=== PATIENT | male | born 1955 | race Caucasian/White ===

== ENCOUNTER → 2024-03-23 | Outpatient (CLI) | payer MEDICARE, MEDICAID, SELFPAY ==
[2024-03-23 12:01] LABS: Basophils % (Auto) 0 % (0-2.5); Eosinophils # (Auto) 0.1 Thou/mm3 (0.0-0.5); Eosinophils % (Auto) 1 % (0-10); Hematocrit 50.2 % (41.0-53.0); Hemoglobin 16.5 g/dL (13.5-16.0); Immature Granulocytes % (Auto) 0 % (0-0); Immature Granulocytes Auto 0.02 Thou/mm3 (0.00-0.00); Lymphocytes # (Auto) 1.6 Thou/mm3 (1.0-4.8); Lymphocytes % (Auto) 19 % (10-50); Mean Corpuscular HGB Conc 32.9 g/dl (31.0-37.0); Mean Corpuscular Hemoglobin 30.8 pg (25.0-35.0); Mean Corpuscular Volume 94 fL (80-100); Monocytes # (Auto) 1.8 Thou/mm3 (0.0-0.8); Monocytes % (Auto) 21 % (0-12); Neutrophils # (Auto) 5.1 Thou/mm3 (1.8-7.7); Neutrophils % (Auto) 59 % (37-80); Nucleated Red Blood Cell % 0 /100 WBC (0); Platelet Count 218 Thou/mm3 (140-440); RDW Standard Deviation 45.6 fL (35.1-43.9); Red Blood Count 5.35 Miln/mm3 (4.50-5.90); White Blood Count 8.6 Thou/mm3 (3.8-10.6)
[2024-03-23 12:08] LABS: Partial Thromboplastin Time 26.4 Seconds (22.0-36.0); Prothrombin Time 11.3 Seconds (9.0-12.2)
[2024-03-23 12:19] LABS: Anion Gap 8 (7-16); BUN/Creatinine Ratio 8 Ratio (12-20); Blood Urea Nitrogen 12 mg/dL (9-23); Calcium 10.1 mg/dL (8.3-10.6); Carbon Dioxide 25.8 mMol/L (20.0-31.0); Chloride 104 mMol/L (98-107); Creatinine (Component) 1.6 mg/dL (0.6-1.3); Glucose 87 mg/dL (74-106); Osmolality,Calculated 274 (275-295); Sodium 138 mMol/L (136-145); eGFR 46 See Note
== END | disposition home or self-care (01) ==
PROVIDERS: PCP Family Medicine; Referring Provider Internal Medicine; Visit Provider Internal Medicine
DX: I25.10 Atherosclerotic heart disease of native coronary artery without angina pectoris (principal); I48.91 Unspecified atrial fibrillation
CPT/HCPCS: 36415; 80048; 85025; 85610; 85730

== ENCOUNTER 2024-03-28 07:16 | Observation (INO) | payer MEDICARE, MEDICAID, SELFPAY ==
[2024-03-28] VITALS (12 sets, daily range): BP systolic 103–154; BP diastolic 71–99; PULSE 77–113; RESP 16–24; TEMP 36.1–36.9; O2SAT 95–98; BMI 29.8
--- NOTE | 2024-03-28 07:27 | XR_ITS ---
Examination: AP chest single view Technique one AP portable semiupright chest single view Exam date and time: March 28, 2024 0735 hrs. Comparison March 22, 2023 Indications: Chest pain beginning this morning Findings: Normal heart size Lungs are clear The osseous structures are intact Impression: No active disease
--- NOTE | 2024-03-28 07:27 | EKG_ITS ---
[facility] Test Date: 2024-03-28 Pat Name: MACIEJ GOTTLIEB Department: Room: - Gender: Male Garnisher: : [id number] Requested By: Kathleen Alvarado Order Number: [id number] Reading MD: Kathleen Alvarado Measurements Intervals [place] Rate: 96 P: 11 MT: 121 QRS: 47 QRSD: 109 T: 19 QT: 335 QTc: 424 Interpretive Statements SINUS RHYTHM Compared to ECG 07/27/2023 10:42:22 Intraventricular conduction delay no longer present /store/S0/[id number]/ecg/[id number].pdf
--- NOTE | 2024-03-28 08:01 | PD.EDCHEST ---
ED Chest Pain RME/HPI General Chief Complaint: Chest Pain Stated Complaint: CHEST PAIN Time Seen by Provider: 03/28/24 07:35 Arrival date/time: 03/28/24 07:16 RME / HPI RME / HPI narrative: DR. KOO MAIN ED EVALUATION: 68 year old male with past medical history significant for hypertension, hyperlipidemia, and smoking presents to the Emergency Department [facility] with complaint of left-sided chest pain. Pain is described as aching and rated moderate in severity. Related Data Home Medications ?Medication ?Instructions ?Recorded ?Confirmed trazodone 50 mg tablet 100 mg PO HS 11/06/18 01/05/21 omeprazole 20 mg capsule,delayed 20 mg PO QDAY 01/30/19 01/05/21 release amlodipine 10 mg tablet 10 mg PO QDAY 01/05/21 01/05/21 atorvastatin 20 mg tablet 20 mg PO HS 01/05/21 01/05/21 diclofenac sodium 75 mg 75 mg PO BIDWM 01/05/21 01/05/21 tablet,delayed release duloxetine 30 mg capsule,delayed 60 mg PO QDAY 01/05/21 01/05/21 release (Cymbalta) gabapentin 600 mg tablet 600 mg PO TID 01/05/21 01/05/21 Previous Rx's ?Medication ?Instructions ?Recorded loratadine 10 mg tablet 10 mg PO QDAY #30 tabs 10/25/21 triamcinolone acetonide 0.1 % 1 applic topical BID #15 grams 10/25/21 topical cream doxycycline monohydrate 100 mg 100 mg PO BID #14 caps 02/06/22 capsule prednisone 50 mg tablet 50 mg PO QDAY #7 tabs 02/06/22 Allergies Allergy/AdvReac Type Severity Reaction Status Date / Time No Known Allergies Allergy Verified 03/22/23 11:40 Review of Systems Review of Systems Systems Reviewed: All systems reviewed, normal except as documented Narrative Review of Systems: GEN: No fever, no chills, no weight loss EYES: No discharge, no visual changes, no pain HEENT: No ear pain, no congestion, no sore throat PULM: No shortness of breath, no cough, no congestion CV: + left-sided chest pain, no dyspnea on exertion, no palpitations GI: No nausea, no vomiting, no diarrhea, no pain, no constipation : No frequency, no urgency and no dysuria MUSC/SKEL: No joint pain, no back pain SKIN: No rash PSYCH: No hallucinations, no depression HEME/LYMPH: No easy bleeding or bruising tendencies NEURO: No weakness, no headache Past Medical History Past Medical History NEUROLOGIC: Negative Neurological Disorders or Seizures CARDIAC: Positive Myocardial Infarction, Atherosclerotic Heart Disease, Hypercholesterolemia, Congestive Heart Failure and Hypertension; Negative Cardiac Disorders RESPIRATORY: Positive Chronic Obstructive Pulmonary Disease (COPD) and Asthma GASTROINTESTINAL: Positive Gastrointestinal Disorders, Diverticulitis and Diverticulosis GENITOURINARY: Positive Genitourinary Disorders and Kidney Stones; Negative Renal Disease MUSCULOSKELETAL: Positive Musculoskeletal Disorders and Arthritis ENDOCRINE: Negative Diabetes Mellitus Type 1 or Diabetes Mellitus Type 2 HEMATOLOGIC: Negative Sickle Cell Disease PSYCHO/SOCIAL: Positive Anxiety and Behavior Problems OTHER HISTORY: Negative Autoimmune Disease, Blood Transfusions, Blood Transfusion Reaction or Anesthesia Reactions Family History FAMILY HISTORY: Positive Family Cardiac Disorders Surgical History SURGICAL: Positive Cardiac Surgery and Abdominal Surgery Social History SMOKING STATUS: Former smoker SUBSTANCE USE: does not use ED Exam Narrative Physical exam: GENERAL APPEARANCE: alert and oriented x 4, well-developed, well-nourished, looks uncomfortable VITALS: All vitals were reviewed and the pulse ox is 96% on room air, which is normal according to my interpretation. HEENT: Normocephalic, atraumatic; pupils equal, round, reactive to light; EOMI; mucous membranes pink, moist; oropharynx clear NECK: Supple LUNGS: CTABL; no wheezes, no rales, no rhonchi HEART: Regular rate, regular rhythm; normal S1, S2; no murmurs ABDOMEN: non distended; normal BS; soft, no tenderness, no guarding, no rebound; no masses, no organomegaly, no hernia BACK: no CVA tenderness EXTREMITIES: large ecchymosis on the left lower extremity that is tender to palpation. Left thigh appears larger than right thigh. Pulses 2+ dorsalis pedis bilaterally. Pedal pulses present B/L NEUROLOGIC: awake; alert and oriented x4; cranial nerves II-XII grossly intact; no focal sensory or motor deficits PSYCHIATRIC: appropriate mood and affect SKIN: warm, dry, no rashes Course Quality Measures none Orders Category Date Time Status Patient Condition Routine Admission 03/28/24 12:[address] in Observation Status Routine Admission 03/28/24 12:44 Active Activity as Tolerated Routine Care 03/28/24 12:46 Ordered Ambulate Patient TID Care 03/28/24 12:46 Active Instruction Dean NOW Care 03/28/24 07:27 Active EKG (ED ONLY) *Do not use* NOW Care 03/28/24 07:27 Completed Notify provider NEEDED Care 03/28/24 12:44 Active Consult to Cardiology Stat Cons 03/28/24 11:24 Ordered EKG (ED Only) Stat Exams 03/28/24 07:27 Draft US soft tissue lower back abd Stat Exams 03/28/24 11:24 Completed XR chest 1V portable Stat Exams 03/28/24 07:27 Completed B-Type Natriuretic Peptide Stat Lab 03/28/24 09:46 Completed CBC Stat Lab 03/28/24 09:46 Completed Comprehensive Metabolic Panel Stat Lab 03/28/24 09:46 Completed Lipase Stat Lab 03/28/24 09:46 Completed Magnesium Stat Lab 03/28/24 09:46 Completed Partial Thromboplastin Time Stat Lab 03/28/24 09:46 Completed Prothrombin Time with INR Stat Lab 03/28/24 09:46 Completed Troponin I Stat Lab 03/28/24 09:46 Completed Aspirin Chew Med 03/28/24 07:39 Discontinued 324 mg PO X1 ONE HYDROcodone*/APAP 5/325 [[place] 5/325] Med 03/28/24 12:38 Discontinued 1 tab PO X1 ONE Ondansetron Odt [Zofran Odt] Med 03/28/24 07:40 Discontinued 4 mg PO X1 ONE Code Status Routine Oth 03/28/24 12:43 Ordered Vital Signs Vital signs: Vital Signs Temperature 97.7 F 03/28/24 07:33 Pulse Rate 100 03/28/24 07:33 Respiratory Rate 16 03/28/24 07:33 Blood Pressure 133/88 H 03/28/24 07:33 Pulse Oximetry (%) 97 03/28/24 07:33 Oxygen Delivery Method Room Air 03/28/24 07:33 Chest Pain MDM Narrative MDM Narrative:: IMona am scribing for and in the presence of Dr. Koo. Patient data External records reviewed:: [facility] previous records (Reviewed cardiology operative note by Dr. Alford dated 07/28/23.) and EMS form Clinical information provided by:: patient and EMS Social determinants that could affect healthcare access:: other (specify) (smoking) Patient has the following chronic illnesses:: Hypertension, hyperlipidemia, and smoking. How is presenting disease/condition affected by chronic disease/condition?: exacerbated by Evaluation data The following diagnostics were reviewed and interpreted by me:: lab results, radiology exam(s) and EKG tracing(s) (sinus rhythm, rate 96, QTc 424) Lab and/or radiology exams considered but not ordered:: none Interpretation Summary: Procedure(s): US soft tissue lower back abd Accession Number(s): [id number] cc: Rafia Park NP; Yunior Yost MD; Kathleen Koo MD~ Examination: Ultrasound soft tissue extremity left groin TECHNIQUE: Grayscale sonographic images soft tissue left groin Exam date and time: March 28, 1999 2533 hours INDICATIONS: Status post arterial procedure March 26, 2024 with bruising in the left groin and thigh FINDINGS: Soft tissue mass most consistent with hematoma in the left groin at the area concern, 7.0 x 3.0 x 7.1 cm There are no images presented indicating pseudoaneurysm IMPRESSION: Soft tissue mass left groin most consistent with hematoma, clinical correlation advised and follow-up recommended as clinically warranted Dictated By: Yunior Yost MD Procedure(s): XR chest 1V portable Accession Number(s): [id number] cc: Rafia Park NP; Yunior Yost MD; Kathleen Koo MD~ Examination: AP chest single view Technique one AP portable semiupright chest single view Exam date and time: March 28, 2024 0735 hrs. Comparison March 22, 2023 Indications: Chest pain beginning this morning Findings: Normal heart size Lungs are clear The osseous structures are intact Impression: No active disease Dictated By: Yunior Yost MD Medications / Prescriptions Medications or Prescriptions considered but not ordered:: none Medication administrations:: Medication Administration History Acetaminophen (Acetaminophen 325 Mg Tablet) 650 mg PO Q6H PRN PRN Reason: PAIN SCALE 1-3 (mild Stop: 04/27/24 12:48 Acetaminophen (Acetaminophen 325 Mg Tablet) 650 mg PO Q6H PRN PRN Reason: Fever >101.5 Stop: 04/27/24 12:48 Discontinued Medications Hydrocodone Bitart/Acetaminophen (Hydrocodone/Apap 5/325 Tablet) 1 tab PO X1 ONE Stop: 03/28/24 12:39 Last Admin: 03/28/24 13:01 Dose: 1 tab Documented By: JENNIFER Aspirin (Aspirin 81 Mg Chew) 324 mg PO X1 ONE Stop: 03/28/24 07:40 Last Admin: 03/28/24 08:15 Dose: 324 mg Documented By: JENNIFER Ondansetron HCl (Ondansetron Odt 4 Mg Tabrap) 4 mg PO X1 ONE; Protocol Stop: 03/28/24 07:41 Last Admin: 03/28/24 08:15 Dose: 4 mg Documented By: JENNIFER see above Consultations Consultation(s) initiated? (list below): Yes Consultation #1 (Physician, Specialty, Details): Discussed test HPI, PMHx, lab, radiology results and/or management with hospitalist. Will admit for further evaluation and management. Accepts patient for admission. Time: 12:40 Diagnosis Chest Pain Differential Diagnosis: pneumothorax, atypical chest pain, costochondritis and chest pain Most likely diagnosis given after review of the tests above:: As noted below. Admission Indicated Admission indicated?: indicated Admission Request Was there a request for admission?: Yes Admission Attestation Admission request attestation: Discussed case with [] from Hospitalist service regarding admission. Discussed patients ED course, exam findings, labs, and radiology results. The Hospitalist [agrees,declines] to accept the patient for admission. Disposition Plan Disposition Plan: Admit
[2024-03-28] MEDS: ASPIRIN 81 MG CHEW 324 MG PO (08:15)
[2024-03-28] MEDS: ONDANSETRON ODT 4 MG TABRAP PO (08:15)
--- NOTE | 2024-03-28 09:14 | PC.NURSE ---
Patient presents to ED with c/o left side chest pain 10/04, pressure in nature, denies nausea/vomiting. Per patient was seen with Dr Alford on 03/26 for plaque removal procedure in office. Patient attempted to see Dr and office was closed, therefore patient presented to ED. Patient is alert and oriented, ambulatory with with assist. Patient updated with plan of care, call light within reach.
[2024-03-28 09:58] LABS: Basophils % (Auto) 0 % (0-2.5); Eosinophils % (Auto) 0 % (0-10); Hematocrit 37.2 % (41.0-53.0); Hemoglobin 12.4 g/dL (13.5-16.0); Immature Granulocytes % (Auto) 0 % (0-0); Immature Granulocytes Auto 0.02 Thou/mm3 (0.00-0.00); Lymphocytes # (Auto) 1.1 Thou/mm3 (1.0-4.8); Lymphocytes % (Auto) 8 % (10-50); Mean Corpuscular HGB Conc 33.3 g/dl (31.0-37.0); Mean Corpuscular Hemoglobin 30.5 pg (25.0-35.0); Mean Corpuscular Volume 92 fL (80-100); Monocytes # (Auto) 2.9 Thou/mm3 (0.0-0.8); Monocytes % (Auto) 21 % (0-12); Neutrophils # (Auto) 9.9 Thou/mm3 (1.8-7.7); Neutrophils % (Auto) 71 % (37-80); Nucleated Red Blood Cell % 0 /100 WBC (0); Platelet Count 154 Thou/mm3 (140-440); RDW Standard Deviation 46.1 fL (35.1-43.9); Red Blood Count 4.06 Miln/mm3 (4.50-5.90)
[2024-03-28 10:20] LABS: INR 1.1 (0.9-1.3); Partial Thromboplastin Time 24.4 Seconds (22.0-36.0); Prothrombin Time 11.6 Seconds (9.0-12.2)
[2024-03-28 10:24] LABS: Alanine Aminotransferase 12 U/L (10-49); Albumin, Serum 4.4 gm/dL (3.4-4.8); Albumin/Globulin Ratio 2.1 (1.2-2.2); Alkaline Phosphatase 24 U/L (46-116); Anion Gap 7 (7-16); Aspartate Amino Transferase 17 U/L (0-34); BUN/Creatinine Ratio 9 Ratio (12-20); Bilirubin,Total 0.4 mg/dL (0.3-1.2); Blood Urea Nitrogen 12 mg/dL (9-23); Calcium 9.2 mg/dL (8.3-10.6); Calcium (Corrected) 9.2 mg/dL (8.5-10.1); Carbon Dioxide 24.8 mMol/L (20.0-31.0); Chloride 105 mMol/L (98-107); Creatinine (Component) 1.4 mg/dL (0.6-1.3); Estimated Creatinine Clearance 49.9 mL/min (>60); Globulin 2.1 gm/dL (2.3-3.5); Glucose 119 mg/dL (74-106); Lipase 31 U/L (12-53); Magnesium 1.9 mg/dL (1.6-2.6); Osmolality,Calculated 274 (275-295); Potassium 4.2 mMol/L (3.4-5.1); Sodium 137 mMol/L (136-145); Total Protein 6.5 gm/dL (5.7-8.2); Troponin I < 0.020 ng/mL (0.0-0.045); eGFR 54 See Note
[2024-03-28 10:25] LABS: B-Type Natriuretic Peptide < 20 pg/mL (0-100)
--- NOTE | 2024-03-28 11:24 | XR_ITS ---
Examination: Ultrasound soft tissue extremity left groin TECHNIQUE: Grayscale sonographic images soft tissue left groin Exam date and time: March 28, 1999 2533 hours INDICATIONS: Status post arterial procedure March 26, 2024 with bruising in the left groin and thigh FINDINGS: Soft tissue mass most consistent with hematoma in the left groin at the area concern, 7.0 x 3.0 x 7.1 cm There are no images presented indicating pseudoaneurysm IMPRESSION: Soft tissue mass left groin most consistent with hematoma, clinical correlation advised and follow-up recommended as clinically warranted
--- NOTE | 2024-03-28 11:38 | PC.NURSE ---
a/c technician at bedside obtaining images.
--- NOTE | 2024-03-28 12:43 | PC.NURSE ---
Dr Fierro at bedside assessing patient for admission.
[2024-03-28] MEDS: HYDROcodone/APAP 5/325 TABLET 1 TAB PO (13:01)
--- NOTE | 2024-03-28 13:52 | ESHP_ITS ---
<Statement entered by Kareen Agustin MD - 03/29/24 06:33> I attest that I was physically present for the evaluation, physical examination, lab and imaging review of the patient with the residents. I discussed the case with the residents and agree with the findings and plans of care as documented above. 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 The chest pain was initially sharp and since has improved significantly. Both initial troponin and EKG were unremarkable. He was noted to have large hematoma in left groin. Discussed with cardiology recommended to trend troponin and observe the hematoma and hemoglobin level. Kareen Agustin MD <Statement entered by Leslie Osorio MD - 03/28/24 15:49> Mr. Sanford is a pleasant 68 year old male with PMH of CVA with mild residual left lower extremity weakness, COPD (not on home O2), CHF, HTN, prediabetes, PAULINO not on CPAP, CKD who presents to the ER for sharp substernal chest pain that started this morning at rest, non-radiating, described as blackness . Patient had an outpatient right leg ?atherectomy with workers compensation claims analyst Dr. Alford 2 days prior with entry site over the left groin. Patient had subsequent bruising over the entry site that was dark blue/black, painful on palpation, that spread down the interior left leg and over the groin. Upon evaluation, patient states his chest pain improved and describes more like pressure. EKG and initial troponin unremarkable. Ultrasound over the left groin shows a large hematoma. Dr. Alford was consulted by the ER who recommended admission for delta trop and for hematoma evaluation. Will reconcile home medications. 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 Patient recently had a peripheral angiogram with Dr. Alford on 26 March. Patient states that this morning he woke up and felt different . Patient states that he woke up with a generalized pain in his left leg, woke up and sweats, felt black with a stabbing type chest pain that radiated to the first right arm than left arm. Patient also states that he felt confused at that time and had nausea and vomiting earlier today. On arrival to the emergency vital signs were stable. Labs significant for hemoglobin of 12.4, down from 16.5 previously on the 03/23 WBC slightly elevated at 14.0. Troponin negative. EKG sinus rhythm. Physical examination in emergency department reveals large ecchymosis on the left lower extremity that is tender to palpation. Left thigh appears larger than right thigh. Pulses 2+ dorsalis pedis bilaterally. Sensation intact bilaterally. Significant xerosis with skin flaking noted bilaterally on lower extremities, however patient states this is chronic. Ultrasound obtained in the emergency department reveals a 7X7X 3 cm hematoma around left thigh. Dr. Alford consulted and states to trend troponin for possible cardiac origin of chest pain. 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 A&Ox3 NEURO: apprenticeship representative grossly intact, moves extremities x4 HEENT: Moist mucosa. Eyes open, symmetrical, & clear CARDIO: No chest pain on palpation. Heart RRR, no obvious murmurs PULM: No noted coughing/dyspnea. Lungs CTA B/L, no R/W/R GI: Abdomen soft, nondistended, no pain on palpation. BSx4 URO/DORMITORY KEEPER:: No further abnormalities noted. SKIN/MSK/EXT: large ecchymosis on the left lower extremity that is tender to palpation. Left thigh appears larger than right thigh. Pulses 2+ dorsalis pedis bilaterally. Significant xerosis with skin flaking noted bilaterally on lower extremities. Pedal pulses present B/L Results: Labs 03/28/24 09:46 03/28/24 09:46 Labs: Short CBC 03/28/24 Range/Units 09:46 WBC 14.0 H D (3.8-10.6) Thou/mm3 Hgb 12.4 L D (13.5-16.0) g/dL Hct 37.2 L D (41.0-53.0) % Plt Count 154 D (140-440) Thou/mm3 BMP 03/28/24 09:46 Sodium 137 Potassium 4.2 Chloride 105 Carbon Dioxide 24.8 BUN 12 Creatinine 1.4 H Glucose 119 H Calcium 9.2 Cardiac Enzymes 03/28/24 Range/Units 09:46 Troponin I < 0.020 (0.0-0.045) ng/mL Liver Function 03/28/24 Range/Units 09:46 Total Bilirubin 0.4 (0.3-1.2) mg/dL AST 17 (0-34) U/L ALT 12 (10-49) U/L Alkaline Phosphatase 24 L (46-116) U/L Albumin 4.4 (3.4-4.8) gm/dL Quality Measures Quality Measures VTE prophylaxis Advance care planning discussed with:: patient Medications Home Medications and Allergies Home Medications ?Medication ?Instructions ?Recorded ?Confirmed ?Type trazodone 50 mg tablet 100 mg PO HS 11/06/18 01/05/21 History omeprazole 20 mg capsule,delayed 20 mg PO QDAY 01/30/19 01/05/21 History release amlodipine 10 mg tablet 10 mg PO QDAY 01/05/21 01/05/21 History atorvastatin 20 mg tablet 20 mg PO HS 01/05/21 01/05/21 History diclofenac sodium 75 mg 75 mg PO BIDWM 01/05/21 01/05/21 History tablet,delayed release duloxetine 30 mg capsule,delayed 60 mg PO QDAY 01/05/21 01/05/21 History release (Cymbalta) gabapentin 600 mg tablet 600 mg PO TID 01/05/21 01/05/21 History Allergies Allergy/AdvReac Type Severity Reaction Status Date / Time No Known Allergies Allergy Verified 03/22/23 11:40 Visit Medications Acetaminophen (Acetaminophen 325 Mg Tablet) 650 mg PO Q6H PRN PRN Reason: PAIN SCALE 1-3 (mild Stop: 04/27/24 12:48 Acetaminophen (Acetaminophen 325 Mg Tablet) 650 mg PO Q6H PRN PRN Reason: Fever >101.5 Stop: 04/27/24 12:48 Discontinued Medications Hydrocodone Bitart/Acetaminophen (Hydrocodone/Apap 5/325 Tablet) 1 tab PO X1 ONE Stop: 03/28/24 12:39 Last Admin: 03/28/24 13:01 Dose: 1 tab Aspirin (Aspirin 81 Mg Chew) 324 mg PO X1 ONE Stop: 03/28/24 07:40 Last Admin: 03/28/24 08:15 Dose: 324 mg Ondansetron HCl (Ondansetron Odt 4 Mg Tabrap) 4 mg PO X1 ONE; Protocol Stop: 03/28/24 07:41 Last Admin: 03/28/24 08:15 Dose: 4 mg Assessment & Plan Plan #Atypical chest pain Patient states that he has a sharp chest pain that radiates to both right and left arm that started this morning Previous left heart cath from 08/18 shows no CAD VSS in ED Troponin in the emergency department negative Dr. Alford suggests trending troponin and if negative patient can DC home -Trend troponin x 3 -Trend morning labs -Continue to monitor symptoms #Hematoma of left lower extremity Recent peripheral angiogram with Dr. Alford on March 26 Soft tissue ultrasound revealed hematoma on left lower extremity 7.0 X3.0X 7.1 cm Physical examination reveals ecchymosis of left thigh which is tender to palpation. Pulses present bilaterally lower extremities. Hemoglobin down to 12.4 from 16.5 on 03/23 -Continue to monitor clinically -Continue to monitor Hgb #Possible CKD GFR 54 on CMP -Avoid nephrotoxic agents #Reactive leukocytosis Recent peripheral angiogram performed, WBC on initial labs 14.0 -Continue to monitor AM labs #Hypertension - resume home amlodipine #HLD Patient states that he has a history of HLD - resuming home Atorvastatin 20 mg HS #Neuropathic Pain Patient attest to having a history of neuropathy - resume home gabapentin Diet:Regular diet DVT:SCDs Herrera:None Lines:Peripheral Dispo:Tele Med Rec:Pending, f/u Code:Full Hospitalization for observation, work-up, & management of atypical chest pain, left lower extremity hematoma Patient was seen, plan was discussed with attending Dr. Nikole Covington D.O. PGY1 Anesthesiology
[2024-03-28 14:54] LABS: Troponin I < 0.020 ng/mL (0.0-0.045)
--- NOTE | 2024-03-28 15:25 | PC.NURSE ---
Report given to Emeli DE LA GARZA, patient transferring to room 263.
--- NOTE | 2024-03-28 15:38 | PC.CC ---
Patient is a 68 year-old male who presents to the hospital for chest pain, leg hematoma. Tanna JAMES made [id number] contact with patient. ASW introduced self, role, and reason for visit. Patient appeared alert and oriented to self, location, and situation. Patient was pleasant and engaged in initial assessment. Patient confirmed information on demographics and reports his caregiver Paris Carey lives with him. Patient disclosed that she is payed through [facility]. Patient reports his next of kin should something happen to him and he is unable to make his medical decisions would be his best friend Yana El . Patient has a daughter Elissa Persaud but she lives in [place] and this is why he would rather have Yana make his medical decisions. At home patient is able to ambulate independently, but needs some assistance with his ADLs. Patient does not use any DME while at home. Patient's primary care provider is Rafia Park. Upon discharge the patient plans to return home with caregivers. web services architect to follow up with any discharge needs.
[2024-03-28] MEDS: oxyCODONE/APAP 5/325 TABLET 1 TAB PO (18:20)
[2024-03-28] MEDS: traZODone HCL 50 MG TABLET 100 MG PO (21:12)
[2024-03-28] MEDS: GABAPENTIN 300 MG CAPSULE 600 MG PO (21:13)
[2024-03-28] MEDS: ATORVASTATIN CALCIUM 20 MG TABLET PO (21:13)
[2024-03-28 23:32] LABS: Troponin I < 0.020 ng/mL (0.0-0.045)
[2024-03-29] MEDS: oxyCODONE/APAP 5/325 TABLET 1 TAB PO ×2 (00:31→07:13)
[2024-03-29 03:41] VITALS: BP 119/81; PULSE 78; RESP 16; TEMP 36.3; O2SAT 98
[2024-03-29 04:18] VITALS: PULSE 74
[2024-03-29] MEDS: GABAPENTIN 300 MG CAPSULE 600 MG PO (05:28)
[2024-03-29 06:10] LABS: Basophils % (Auto) 0 % (0-2.5); Eosinophils # (Auto) 0.2 Thou/mm3 (0.0-0.5); Eosinophils % (Auto) 2 % (0-10); Hematocrit 31.5 % (41.0-53.0); Hemoglobin 10.7 g/dL (13.5-16.0); Immature Granulocytes % (Auto) 0 % (0-0); Immature Granulocytes Auto 0.03 Thou/mm3 (0.00-0.00); Lymphocytes # (Auto) 1.7 Thou/mm3 (1.0-4.8); Lymphocytes % (Auto) 16 % (10-50); Mean Corpuscular Hemoglobin 30.9 pg (25.0-35.0); Mean Corpuscular Volume 91 fL (80-100); Monocytes # (Auto) 2.7 Thou/mm3 (0.0-0.8); Monocytes % (Auto) 25 % (0-12); Neutrophils % (Auto) 56 % (37-80); Nucleated Red Blood Cell % 0 /100 WBC (0); Platelet Count 160 Thou/mm3 (140-440); RDW Standard Deviation 44.8 fL (35.1-43.9); Red Blood Count 3.46 Miln/mm3 (4.50-5.90); White Blood Count 10.7 Thou/mm3 (3.8-10.6)
[2024-03-29 06:20] LABS: Alanine Aminotransferase < 7 U/L (10-49); Albumin/Globulin Ratio 2.1 (1.2-2.2); Alkaline Phosphatase 21 U/L (46-116); Anion Gap 6 (7-16); Aspartate Amino Transferase 18 U/L (0-34); BUN/Creatinine Ratio 10 Ratio (12-20); Bilirubin,Total 0.5 mg/dL (0.3-1.2); Blood Urea Nitrogen 13 mg/dL (9-23); Calcium 9.7 mg/dL (8.3-10.6); Calcium (Corrected) 9.7 mg/dL (8.5-10.1); Carbon Dioxide 27.8 mMol/L (20.0-31.0); Chloride 105 mMol/L (98-107); Creatinine (Component) 1.3 mg/dL (0.6-1.3); Estimated Creatinine Clearance 65.9 mL/min (>60); Globulin 1.9 gm/dL (2.3-3.5); Glucose 108 mg/dL (74-106); Osmolality,Calculated 278 (275-295); Potassium 4.3 mMol/L (3.4-5.1); Sodium 139 mMol/L (136-145); Total Protein 5.9 gm/dL (5.7-8.2); eGFR 59 See Note
[2024-03-29 07:19] LABS: Glucose Estimated Average 111 mg/dL (80-131); Hemoglobin A1C 5.5 % Hgb (4.8-6.0)
--- NOTE | 2024-03-29 07:50 | PD.IMCONS ---
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, COPD (not on home O2), CHF, HTN, prediabetes, PAULINO not on CPAP, CKD pt was seen in the ER with chest pain ; pt has out pt peripheral vascular intervention of the R leg pt also c/o of some tenderness of the L groin u/s show hematoma ; 7x7 - no pseudoaneurysm EKG negative for ischemia troponin x2 negative cc:: cc: Kareen Agustin MD Meds Home Medications and Allergies Home Medications ?Medication ?Instructions ?Recorded ?Confirmed ?Type trazodone 50 mg tablet 100 mg PO HS 11/06/18 03/28/24 History omeprazole 20 mg capsule,delayed 20 mg PO QDAY 01/30/19 03/28/24 History release atorvastatin 20 mg tablet 20 mg PO HS 01/05/21 03/28/24 History benazepril 10 mg tablet 10 mg PO Q12H 03/28/24 03/28/24 History gabapentin 800 mg tablet 800 mg PO TID 03/28/24 03/28/24 History Allergies Allergy/AdvReac Type Severity Reaction Status Date / Time No Known Allergies Allergy Verified 03/22/23 11:40 Exam Vital Signs Temp Pulse Resp BP Pulse Ox O2 Del Method 97.3 F 74 16 119/81 98 Room Air 03/29/24 03:41 03/29/24 04:18 03/29/24 03:41 03/29/24 03:41 03/29/24 03:41 03/29/24 03:41 Routine HEENT Exam Head: Present normocephalic and atraumatic Eye: Present EOMI and PERRL ENT: Present mucous membranes moist Routine Neck Exam Neck: Present supple and trachea midline Routine Respiratory Exam Respiratory: Present chest non-tender, lungs clear, normal breath sounds and no resp distress Routine Cardiovascular Exam Cardiovascular: Present RRR Routine Abdominal Exam Abdominal: Present soft and normoactive bowel sounds Routine Extremities Exam Extremities: Present full ROM Routine Skin Exam Skin: Present intact, dry and warm Routine Neurological Exam Neurological: Present alert, oriented X3 and CN II-XII intact Routine Psychiatric Exam Psychiatric: Present normal affect and normal thought process Results Labs 03/29/24 05:24 03/29/24 05:24 Labs: Short CBC 03/28/24 03/29/24 Range/Units 09:46 05:24 WBC 14.0 H D 10.7 H (3.8-10.6) Thou/mm3 Hgb 12.4 L D 10.7 L (13.5-16.0) g/dL Hct 37.2 L D 31.5 L (41.0-53.0) % Plt Count 154 D 160 (140-440) Thou/mm3 BMP 03/28/24 03/29/24 09:46 05:24 Sodium 137 139 Potassium 4.2 4.3 Chloride 105 105 Carbon Dioxide 24.8 27.8 BUN 12 13 Creatinine 1.4 H 1.3 Glucose 119 H 108 H Calcium 9.2 9.7 Cardiac Enzymes 03/28/24 03/28/24 03/28/24 Range/Units 09:46 14:30 22:06 Troponin I < 0.020 < 0.020 < 0.020 (0.0-0.045) ng/mL Liver Function 03/28/24 03/29/24 Range/Units 09:46 05:24 Total Bilirubin 0.4 0.5 (0.3-1.2) mg/dL AST 17 18 (0-34) U/L ALT 12 < 7 L (10-49) U/L Alkaline Phosphatase 24 L 21 L (46-116) U/L Albumin 4.4 4.0 (3.4-4.8) gm/dL Assessment and Plan Assessment and plan (1) Chest pain: Status: Inactive (2) Hematoma: Status: Acute (3) PVD (peripheral vascular disease): Status: Acute Additional Assessment & Plan Additional Plan: so far troponin negative further w/u as out pt hematoma of the L groin ; No pseudo aneurysm; h/h stable continue current management
[2024-03-29 08:00] VITALS: BP 142/99; PULSE 84; PULSE 87; RESP 20; TEMP 36.1; O2SAT 96
[2024-03-29 08:06] VITALS: BP 142/99; PULSE 87
[2024-03-29] MEDS: amLODIPine BESYLATE 5 MG TABLET 10 MG PO (08:06)
[2024-03-29] MEDS: ASPIRIN EC 81 MG TABEC PO (08:07)
[2024-03-29 10:30] VITALS: BP 121/89; PULSE 85; RESP 18; TEMP 36.1; O2SAT 95
--- NOTE | 2024-03-29 14:51 | ESDS_ITS ---
<Statement entered by Kareen Agustin MD - 03/29/24 17:08> I attest that I was physically present for the evaluation, physical examination, lab and imaging review of the patient with the residents. I discussed the case with the residents and agree with the findings and plans of care as documented above. Patient states he is feeling better compared to yesterday. His leg welling has remained stable and discomfort is decreasing. His chest pain has also resolved. Troponin is negative x 3. Discussed with cardiology, patient deemed stable for discharge. Patient is to be discharged home on his home medication. Recommended follow up with cardiology and PCP in 2 week. Kareen Agustin MD <Statement entered by José Miguel Fierro MD - 03/29/24 15:33> Patient remained stable during hospital stay. Troponin remained within normal limits, and right extremity seems about the same without increased swelling. Per Dr. Alford patient is stable for discharge with outpatient follow-up. Patient to follow-up with his PCP within 2 weeks of discharge and Dr. Alford. Case discussed with team. José Miguel Fierro MD PGY3 Planned Discharge Date 03/29/24 DS: Providers Provider Date of admission: 03/28/24 12:44 Primary care physician: Rafia Park NP Admitting Provider: Kareen Agustin MD Attending Provider on Admission: Kareen Agustin MD Consults: 03/28/24 11:24 Consult to Cardiology Stat Comment: Consulting Provider: Polina Alford Attending Provider on DC: Melchor Covington Discharging Provider: Melchor Covington DS: Diagnosis Problem List Completed Was Problem List Reviewed/Reconciled?: Yes Hospital Course Hospital Course Hospital course: #Atypical chest pain #Hematoma of left lower extremity #Possible CKD #Reactive leukocytosis #Hypertension #HLD #Neuropathic Pain Patient is a 68-year-old male with a past medical history of CVA with residual left lower extremity weakness, COPD, CHF, HTN, prediabetes, PAULINO not on CPAP, CKD presenting to the emergency department due to chest pain and left lower extremity pain. Patient recently had a peripheral angiogram with Dr. Alford on 26 March. Patient states that this morning he woke up and felt different . Patient states that he woke up with a generalized pain in his left leg, woke up and sweats, felt black with a stabbing type chest pain that radiated to the first right arm than left arm. Patient also states that he felt confused at that time and had nausea and vomiting earlier today. On arrival to the emergency vital signs were stable. Labs significant for hemoglobin of 12.4, down from 16.5 previously on the 03/23 WBC slightly elevated at 14.0. Troponin negative. EKG sinus rhythm. Physical examination in emergency department reveals large ecchymosis on the left lower extremity that is tender to palpation. Left thigh appears larger than right thigh. Pulses 2+ dorsalis pedis bilaterally. Sensation intact bilaterally. Significant xerosis with skin flaking noted bilaterally on lower extremities, however patient states this is chronic. Ultrasound obtained in the emergency department reveals a 7X7X 3 cm hematoma around left thigh. Over the course of patient's hospital stay troponins were all negative. Patient states that his hematoma appears to be resolving, his pain is much reduced since time of admission. Hematoma that was demarcated on admission has not increased in size. Leg swelling on left is decreased. Vital signs are stable. Patient at time of discharge denies any new symptoms. Patient will be discharged home and advised to follow-up with his primary care provider education manager . Patient advised to return to the emergency department if symptoms persist or worsen. Patient is amenable to discharge. Time Spent with Patient Time attestation: Total time spent providing and/or coordinating discharge services: Exam Vital Signs Temp Pulse Resp BP Pulse Ox O2 Del Method 97.0 F 85 18 121/89 H 95 Room Air 03/29/24 10:30 03/29/24 10:30 03/29/24 10:30 03/29/24 10:30 03/29/24 10:30 03/29/24 10:30 Narrative Exam GENERAL: NAD, NC/AT, responsive/cooperative. 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 Eyes open, symmetrical, & clear CARDIO: No chest pain on palpation. Heart RRR, no obvious murmurs PULM: No noted coughing/dyspnea. Lungs CTA B/L, no R/W/R GI: Abdomen soft, nondistended, no pain on palpation. BSx4 URO/ROLL TABLE OPERATOR:: No further abnormalities noted. SKIN/MSK/EXT: large ecchymosis on the left lower extremity that is tender to palpation. Left thigh appears larger than right thigh. Pulses 2+ dorsalis pedis bilaterally. Significant xerosis with skin flaking noted bilaterally on lower extremities. Pedal pulses present B/L Discharge Plan Plan Patient Disposition: HOME (Self Care) Patient condition on transfer: Stable Prescriptions/Referrals Prescriptions/Med Rec: New aspirin 81 mg Tablet,Delayed Release (Dr/Ec) 81 mg PO QDAY 30 Days Qty: 30 0RF Continued trazodone 50 mg Tablet 100 mg PO HS omeprazole 20 mg Capsule,Delayed Release(Dr/Ec) 20 mg PO QDAY atorvastatin 20 mg tablet 20 mg PO HS Patient Comments: TAKE 1 TABLET BY MOUTH AT BEDTIME benazepril 10 mg tablet 10 mg PO Q12H Patient Comments: TAKE 2 TABLETS BY MOUTH EVERY MORNING AND 1 TABLET BY MOUTH EVERY EVENING. gabapentin 800 mg tablet 800 mg PO TID Patient Comments: TAKE 1 TABLET BY MOUTH THREE TIMES A DAY Referrals: Rafia Park NP [Primary Care Provider] - Polina Alford MD [Physician] - Patient/Caregiver Discharge Instructions Other Discharge Activity Instructions:: Follow-up with PCP within 2 weeks of discharge. Follow-up with Dr. Alford within 2 week of discharge. Continue rest of home medication. Education Materials: Low-Salt Choices, Hypertension Dc, ED Hematoma Print Language: Bulgarian Stand Alone Forms: [employer] Award Info., Patient Portal Info Letter, Work/Release Restrictions Discharge Order Discharge Orders: Discharge (Routine); Ordered 03/29/24 Ordered By: Melchor Covington Quality Discharge Quality Measures VTE prophylaxis
== END 2024-03-29 11:25 | disposition home or self-care (01) ==
LOC: SERX 08:36 → SERHOLD 13:47 → S2NX 16:21
PROVIDERS: Student in an Organized Health Care Education/Training Program; Admitting Provider Student in an Organized Health Care Education/Training Program; Emergency Provider Emergency Medicine; PCP Nurse Practitioner Women's Health; Visit Provider Student in an Organized Health Care Education/Training Program
DX: R07.89 Other chest pain (principal); S80.12XA Contusion of left lower leg, initial encounter; Z79.899 Other long term (current) drug therapy; D72.829 Elevated white blood cell count, unspecified; E78.00 Pure hypercholesterolemia, unspecified; F41.9 Anxiety disorder, unspecified; G47.33 Obstructive sleep apnea (adult) (pediatric); I25.2 Old myocardial infarction; I11.0 Hypertensive heart disease with heart failure; I50.9 Heart failure, unspecified; I69.344 Monoplegia of lower limb following cerebral infarction affecting left non-dominant side; J44.9 Chronic obstructive pulmonary disease, unspecified
CPT/HCPCS: 36415; 71045; 76705; 80053; 83036; 83690; 83735; 83880; 84484; 85025; 85610; 85730; 93005; 99285; G0378; Q0162; A9270

== ENCOUNTER → 2024-04-10 | Outpatient (CLI) | payer MEDICARE, MEDICAID, SELFPAY ==
[2024-04-10 12:21] LABS: Basophils % (Auto) 0 % (0-2.5); Eosinophils # (Auto) 0.2 Thou/mm3 (0.0-0.5); Eosinophils % (Auto) 2 % (0-10); Hematocrit 36.4 % (41.0-53.0); Hemoglobin 11.6 g/dL (13.5-16.0); Immature Granulocytes % (Auto) 0 % (0-0); Immature Granulocytes Auto 0.04 Thou/mm3 (0.00-0.00); Lymphocytes # (Auto) 1.5 Thou/mm3 (1.0-4.8); Lymphocytes % (Auto) 16 % (10-50); Mean Corpuscular HGB Conc 31.9 g/dl (31.0-37.0); Mean Corpuscular Hemoglobin 30.8 pg (25.0-35.0); Mean Corpuscular Volume 97 fL (80-100); Monocytes # (Auto) 1.9 Thou/mm3 (0.0-0.8); Monocytes % (Auto) 21 % (0-12); Neutrophils # (Auto) 5.5 Thou/mm3 (1.8-7.7); Neutrophils % (Auto) 60 % (37-80); Nucleated Red Blood Cell % 0 /100 WBC (0); Platelet Count 467 Thou/mm3 (140-440); RDW Standard Deviation 53.7 fL (35.1-43.9); Red Blood Count 3.77 Miln/mm3 (4.50-5.90); White Blood Count 9.1 Thou/mm3 (3.8-10.6)
[2024-04-10 12:38] LABS: Alanine Aminotransferase 14 U/L (10-49); Albumin, Serum 4.8 gm/dL (3.4-4.8); Albumin/Globulin Ratio 2.2 (1.2-2.2); Alkaline Phosphatase 37 U/L (46-116); Anion Gap 10 (7-16); Aspartate Amino Transferase 15 U/L (0-34); BUN/Creatinine Ratio 14 Ratio (12-20); Bilirubin,Total 0.8 mg/dL (0.3-1.2); Blood Urea Nitrogen 18 mg/dL (9-23); Calcium 9.5 mg/dL (8.3-10.6); Calcium (Corrected) 9.5 mg/dL (8.5-10.1); Carbon Dioxide 26.2 mMol/L (20.0-31.0); Chloride 104 mMol/L (98-107); Creatinine (Component) 1.3 mg/dL (0.6-1.3); Globulin 2.2 gm/dL (2.3-3.5); Glucose 99 mg/dL (74-106); Osmolality,Calculated 281 (275-295); Potassium 4.7 mMol/L (3.4-5.1); Sodium 140 mMol/L (136-145); eGFR 59 See Note
== END | disposition home or self-care (01) ==
LOC: COPL 11:28
PROVIDERS: PCP Family Medicine; Referring Provider Internal Medicine; Visit Provider Internal Medicine
DX: R42 Dizziness and giddiness (principal); I25.10 Atherosclerotic heart disease of native coronary artery without angina pectoris
CPT/HCPCS: 36415; 80053; 85025

== ENCOUNTER 2024-04-14 11:33 | Emergency (ER) | payer MEDICARE, MEDICAID, SELFPAY ==
[2024-04-14 11:34] VITALS: BMI 31.8
[2024-04-14 11:58] VITALS: BP 153/87; PULSE 90; RESP 19; TEMP 37.1; O2SAT 98
--- NOTE | 2024-04-14 12:02 | XR_ITS ---
Examination: Venous duplex lower extremity sonogram, bilateral. Date and time of exam: April 14, 2024 at 12:20 PM Indications: Left leg redness swelling and pain edema post angiogram March 27, 2024 Technique: Multiple sonographic images of the deep venous system have been obtained. B-mode/2-D grayscale imaging of vascular structures and Doppler spectral analysis (waveforms) and color performed Both legs are examined. Findings: Positive for nonocclusive deep vein thrombus in the left common femoral vein Remaining deep venous system left lower extremity unremarkable Normal right lower extremity Also mass 5.6 x 1.6 x 2.5 cm adjacent to the left common femoral artery Impression: Positive for nonocclusive thrombus left common femoral vein Mass adjacent to the left common femoral artery most consistent with hematoma, as the technologist states there is no arterial flow into this mass
--- NOTE | 2024-04-14 12:02 | EKG_ITS ---
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
--- NOTE | 2024-04-14 12:02 | XR_ITS ---
Examination: PA chest single view Technique: Upright PA single view Exam date and time: April 14, 2024 1300 hrs. Indications: Loss of breath today Findings: Normal heart size Prominent central pulmonary arteries Increased interstitial markings at the lung bases The osseous structures are intact Impression: Pulmonary artery hypertension Bibasilar bronchitis versus early pneumonia, clinical correlation advised
--- NOTE | 2024-04-14 12:04 | EDNOTE_ITS ---
<Statement entered by Kathleen Koo MD - 04/14/24 15:34> As co-signing physician, I was present and available for consult prn. I concur with the plan and care as documented by the midlevel provider. ED Extremity Problem RME/HPI General Chief complaint: Extremity Problem,Nontraumatic Stated complaint: LEFT LEG SWELLING Time Seen by Provider: 04/14/24 11:35 Arrival date/time: 04/14/24 11:33 RME / HPI RME / HPI Narrative: 68-year-old male patient with significant history of hypertension, recent angiogram, 20 days ago, came in for evaluation regarding leg swelling. Apparently according to the patient after the procedure patient noticed worsening swelling to the left lower extremity, seen by his information and data architect analyst, Dr. Alford, and was advised to go to the emergency room for ultrasound of bilateral lower extremity. Patient also complained of discomfort. Patient also complained of on and off shortness of breath, and gaining weight for the last few weeks. Denies any cough denies any fever denies any other complaints no medications taken prior to arrival. Related Data Home Medications ?Medication ?Instructions ?Recorded ?Confirmed trazodone 50 mg tablet 100 mg PO HS 11/06/18 03/28/24 omeprazole 20 mg capsule,delayed 20 mg PO QDAY 01/30/19 03/28/24 release atorvastatin 20 mg tablet 20 mg PO HS 01/05/21 03/28/24 benazepril 10 mg tablet 10 mg PO Q12H 03/28/24 03/28/24 gabapentin 800 mg tablet 800 mg PO TID 03/28/24 03/28/24 Previous Rx's ?Medication ?Instructions ?Recorded aspirin 81 mg tablet,delayed 81 mg PO QDAY 30 days #30 tabs 03/29/24 release apixaban 5 mg tablet (Eliquis) 5 mg PO BID #60 tabs 04/14/24 Allergies Allergy/AdvReac Type Severity Reaction Status Date / Time No Known Allergies Allergy Verified 04/14/24 11:34 Review of Systems Review of Systems Narrative Review of Systems: Review of system reviewed and within normal limits except mentioned in HPI ED Exam Narrative Physical exam: VITAL SIGNS: Reviewed. GENERAL APPEARANCE: Alert and interactive, follows commands, no acute distress, HEAD AND FACE: Non-traumatic. ENT: PERRL, pink conjunctivitis, eyelid no trauma, Mucous membrane moist. NECK: Supple, nontender, no nuchal rigidity. CHEST: No tenderness, no crepitus, no paradoxical movement, no retractions. LUNGS: Clear, well ventilated, symmetric, no rales, no wheezing, no ronchi, no stridor, good breath sounds bilaterally. HEART: Regular rate, regular rhythm, no murmur, no gallops. ABDOMEN: Soft, positive bowel sounds, nondistended, no guarding, nontender, no rebound, no masses, RECTAL: Deferred. GENITAL: Deferred. NEUROLOGICAL: Gross motor function intact sensory function intact, Appropriate for age. MUSCULOSKELETAL: low back nontender, full range of motion. EXTREMITIES: Bilateral lower extremity swelling more on the left with dry skin,, full range of motion. SKIN: Color pink, dry, no rash, no lacerations, no abrasions, no contusions. LYMPHATICS: Deferred. Course Quality Measures none Orders Category Date Time Status EKG (ED ONLY) *Do not use* NOW Care 04/14/24 12:02 Completed EKG (ED Only) Stat Exams 04/14/24 12:02 Draft US venous doppler LE BI Stat Exams 04/14/24 12:02 Taken XR chest 1V Stat Exams 04/14/24 12:02 Completed B-Type Natriuretic Peptide Stat Lab 04/14/24 12:12 Completed CBC Stat Lab 04/14/24 12:12 Completed Comprehensive Metabolic Panel Stat Lab 04/14/24 12:12 Completed Partial Thromboplastin Time Stat Lab 04/14/24 12:12 Completed Prothrombin Time with INR Stat Lab 04/14/24 12:12 Completed Troponin I Stat Lab 04/14/24 12:12 Completed Apixaban [Eliquis] Med 04/14/24 13:44 Discontinued 10 mg PO X1 ONE Vital Signs Vital signs: Vital Signs Temperature 98.7 F 04/14/24 11:58 Pulse Rate 90 04/14/24 11:58 Respiratory Rate 19 04/14/24 11:58 Blood Pressure 153/87 H 04/14/24 11:58 Pulse Oximetry (%) 98 04/14/24 11:58 Oxygen Delivery Method Room Air 04/14/24 11:58 Extremity Problem MDM Narrative MDM Narrative:: 68-year-old male patient with significant history of hypertension, recent angiogram, 20 days ago, came in for evaluation regarding leg swelling. Apparently according to the patient after the procedure patient noticed worsening swelling to the left lower extremity, seen by his information and data architect analyst, Dr. Alford, and was advised to go to the emergency room for ultrasound of bilateral lower extremity. Patient also complained of discomfort. Patient also complained of on and off shortness of breath, and gaining weight for the last few weeks. Denies any cough denies any fever denies any other complaints no medications taken prior to arrival. Patient's workup all came back unremarkable. Chest x-ray showed possible atelectasis versus pneumonia, I do not suspect any pneumonia since patient is not having any cough or fever. Ultrasound of the lower extremity showed nonocclusive DVT on the common femoral vein. Results discussed with the patient. I spoke with Dr. Alford, patient's information and data architect analyst, who recommends giving patient first dose of Eliquis in the emergency room and send the patient home on Eliquis twice a day 5 mg and follow-up in the clinic. Patient appears nontoxic and hemodynamically stable. Patient discharged home and instructed to follow-up with primary care provider in 24 to 48 hours. Instructed to return to the emergency department immediately if worsening of symptoms Patient data External records reviewed:: None Clinical information provided by:: patient Social determinants that could affect healthcare access:: none Patient has the following chronic illnesses:: Hypertension CAD How is presenting disease/condition affected by chronic disease/condition?: exacerbated by Evaluation data The following diagnostics were reviewed and interpreted by me:: lab results, radiology exam(s) and EKG tracing(s) Lab and/or radiology exams considered but not ordered:: None Interpretation Summary: EKG as interpreted by me showed normal sinus rhythm, ventricular rate of 90 bpm, no ST segment elevation depression noted. Chest x-ray showed Pulmonary artery hypertension Bibasilar bronchitis versus early pneumonia, clinical correlation advised Ultrasound of the lower extremity showed nonocclusive DVT common femoral vein Patient's laboratory workup came back normal Medications / Prescriptions Medications or Prescriptions considered but not ordered:: None Eliquis Medication administrations:: Medication Administration History Discontinued Medications Apixaban (Apixaban 2.5 Mg Tablet) 10 mg PO X1 ONE Stop: 04/14/24 13:45 Eliquis Consultations Consultation(s) initiated? (list below): Yes Consultation #1 (Physician, Specialty, Details): Records noted Dr. Alford, patient information and data architect analyst, thank you Dr. Alford Diagnosis Extremity Problem Differential Diagnosis: superficial thrombophlebitis, lower extremity edema and deep vein thrombosis of lower extremity Most likely diagnosis given after review of the tests above:: DVT lower extremity Admission Indicated Admission indicated?: not indicated Explain why admission is indicated or not indicated:: Stable Admission Request Was there a request for admission?: No Disposition Plan Disposition Plan: Discharge Discharge Attestation Discharge Attestation: The patient and all family members were given an opportunity to ask questions and understood the discharge instructions. Discharge instructions specifically effects, indications for sooner follow up or return to the emergency department, and the expected course of current diagnosis. Patient condition: Stable Discharge Plan Plan Patient Disposition: HOME (Self Care) Disposition Comment: stable Prescriptions/Referrals Prescriptions/Med Rec: New Eliquis 5 mg tablet 5 mg PO BID Qty: 60 0RF No Action trazodone 50 mg Tablet 100 mg PO HS omeprazole 20 mg Capsule,Delayed Release(Dr/Ec) 20 mg PO QDAY atorvastatin 20 mg tablet 20 mg PO HS Patient Comments: TAKE 1 TABLET BY MOUTH AT BEDTIME benazepril 10 mg tablet 10 mg PO Q12H Patient Comments: TAKE 2 TABLETS BY MOUTH EVERY MORNING AND 1 TABLET BY MOUTH EVERY EVENING. gabapentin 800 mg tablet 800 mg PO TID Patient Comments: TAKE 1 TABLET BY MOUTH THREE TIMES A DAY aspirin 81 mg Tablet,Delayed Release (Dr/Ec) 81 mg PO QDAY 30 Days Qty: 30 0RF Referrals: No Primary/Family,Physician [Primary Care Provider] - In 1 week Problem List Clinical Impression: DVT, lower extremity, proximal, acute Patient/Caregiver Discharge Instructions Discharge Activity: activity as tolerated Education Materials: ED Deep Vein Thrombosis (DVT) Additional Instructions: Thank you for the opportunity for serving you today. You are stable for discharged . You are advised to: Follow-up with your information and data architect analyst, next week Return to ED for worsening of symptoms Increase oral fluids Take medication as prescribed Elevate your legs as needed, do not massage your lower extremity Print Language: Moroccan Stand Alone Forms: [employer] Award Info., Patient Portal Info Letter LETI/SHELLY Supervising Physician LETI/SHELLY Supervising Physician: MD Hanane
[2024-04-14 12:19] LABS: Basophils % (Auto) 1 % (0-2.5); Eosinophils # (Auto) 0.2 Thou/mm3 (0.0-0.5); Eosinophils % (Auto) 3 % (0-10); Hematocrit 36.1 % (41.0-53.0); Immature Granulocytes % (Auto) 0 % (0-0); Immature Granulocytes Auto 0.01 Thou/mm3 (0.00-0.00); Lymphocytes # (Auto) 1.1 Thou/mm3 (1.0-4.8); Lymphocytes % (Auto) 17 % (10-50); Mean Corpuscular HGB Conc 33.2 g/dl (31.0-37.0); Mean Corpuscular Volume 93 fL (80-100); Monocytes # (Auto) 0.9 Thou/mm3 (0.0-0.8); Monocytes % (Auto) 14 % (0-12); Neutrophils % (Auto) 65 % (37-80); Nucleated Red Blood Cell % 0 /100 WBC (0); Platelet Count 381 Thou/mm3 (140-440); RDW Standard Deviation 51.6 fL (35.1-43.9); Red Blood Count 3.87 Miln/mm3 (4.50-5.90); White Blood Count 6.1 Thou/mm3 (3.8-10.6)
[2024-04-14 12:39] LABS: INR 1.1 (0.9-1.3); Partial Thromboplastin Time 30.1 Seconds (22.0-36.0); Prothrombin Time 11.7 Seconds (9.0-12.2)
[2024-04-14 12:42] LABS: B-Type Natriuretic Peptide < 20 pg/mL (0-100)
[2024-04-14 12:44] LABS: Alanine Aminotransferase 13 U/L (10-49); Albumin, Serum 4.8 gm/dL (3.4-4.8); Albumin/Globulin Ratio 1.9 (1.2-2.2); Alkaline Phosphatase 35 U/L (46-116); Anion Gap 8 (7-16); Aspartate Amino Transferase 18 U/L (0-34); BUN/Creatinine Ratio 9 Ratio (12-20); Bilirubin,Total 0.8 mg/dL (0.3-1.2); Blood Urea Nitrogen 11 mg/dL (9-23); Calcium 9.3 mg/dL (8.3-10.6); Calcium (Corrected) 9.3 mg/dL (8.5-10.1); Chloride 104 mMol/L (98-107); Creatinine (Component) 1.2 mg/dL (0.6-1.3); Globulin 2.5 gm/dL (2.3-3.5); Glucose 141 mg/dL (74-106); Osmolality,Calculated 277 (275-295); Potassium 4.1 mMol/L (3.4-5.1); Sodium 138 mMol/L (136-145); Total Protein 7.3 gm/dL (5.7-8.2); Troponin I < 0.002 ng/mL (0.0-0.045); eGFR > 60 See Note
[2024-04-14] MEDS: APIXABAN 2.5 MG TABLET 10 MG PO (14:08)
== END 2024-04-14 14:12 | disposition home or self-care (01) ==
PROVIDERS: Nurse Practitioner Family; Emergency Provider Emergency Medicine
DX: I82.412 Acute embolism and thrombosis of left femoral vein (principal); I10 Essential (primary) hypertension
CPT/HCPCS: 36415; 71045; 80053; 83880; 84484; 85025; 85610; 85730; 93005; 93970; 99284; A9270

== ENCOUNTER → 2024-06-29 | Outpatient (CLI) | payer MEDICARE, MEDICAID, SELFPAY ==
[2024-06-29 11:26] LABS: Basophils % (Auto) 1 % (0-2.5); Eosinophils # (Auto) 0.1 Thou/mm3 (0.0-0.5); Eosinophils % (Auto) 2 % (0-10); Hematocrit 42.9 % (41.0-53.0); Hemoglobin 14.4 g/dL (13.5-16.0); Immature Granulocytes % (Auto) 0 % (0-0); Immature Granulocytes Auto 0.01 Thou/mm3 (0.00-0.00); Lymphocytes # (Auto) 1.5 Thou/mm3 (1.0-4.8); Lymphocytes % (Auto) 24 % (10-50); Mean Corpuscular HGB Conc 33.6 g/dl (31.0-37.0); Mean Corpuscular Hemoglobin 29.7 pg (25.0-35.0); Mean Corpuscular Volume 89 fL (80-100); Monocytes # (Auto) 1.7 Thou/mm3 (0.0-0.8); Monocytes % (Auto) 27 % (0-12); Neutrophils # (Auto) 2.8 Thou/mm3 (1.8-7.7); Neutrophils % (Auto) 46 % (37-80); Nucleated Red Blood Cell % 0 /100 WBC (0); Platelet Count 226 Thou/mm3 (140-440); Red Blood Count 4.85 Miln/mm3 (4.50-5.90); White Blood Count 6.1 Thou/mm3 (3.8-10.6)
[2024-06-29 11:37] LABS: Anion Gap 7 (7-16); BUN/Creatinine Ratio 10 Ratio (12-20); Blood Urea Nitrogen 14 mg/dL (9-23); Calcium 9.5 mg/dL (8.3-10.6); Carbon Dioxide 29.4 mMol/L (20.0-31.0); Chloride 104 mMol/L (98-107); Creatinine (Component) 1.4 mg/dL (0.6-1.3); Glucose 84 mg/dL (74-106); Osmolality,Calculated 278 (275-295); Potassium 4.7 mMol/L (3.4-5.1); Sodium 140 mMol/L (136-145); eGFR 54 See Note
[2024-06-29 11:40] LABS: INR 1.1 (0.9-1.3); Prothrombin Time 11.6 Seconds (9.0-12.2)
== END | disposition home or self-care (01) ==
LOC: COPL 10:34
PROVIDERS: PCP Family Medicine; Referring Provider Internal Medicine; Visit Provider Internal Medicine
DX: I25.10 Atherosclerotic heart disease of native coronary artery without angina pectoris (principal); I48.91 Unspecified atrial fibrillation
CPT/HCPCS: 36415; 80048; 85025; 85610; 85730

== ENCOUNTER 2025-01-30 08:22 | Emergency (ER) | payer MEDICARE, MEDICAID, SELFPAY ==
[2025-01-30 08:28] VITALS: PULSE 74; RESP 16
--- NOTE | 2025-01-30 08:28 | EKG_ITS ---
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
--- NOTE | 2025-01-30 08:32 | PD.EDCHEST ---
ED Chest Pain RME/HPI General Chief Complaint: Shortness of Breath/Dyspnea Stated Complaint: sob, chest pain Time Seen by Provider: 01/30/25 08:31 Arrival date/time: 01/30/25 08:22 RME / HPI RME / HPI narrative: 69 year old male with history of CVA, CHF, hypertension, COPD, CKD presents to the ED BIBA from home for evaluation of shortness of breath and mid chest pain beginning 3 days ago. Pain described as aching in sensation located most to the middle to left side of chest with no radiation, rating as mild. Shortness of breath described as feeling he is not able to get a full breath in. No known modifying factors at home. Denies fever, chills, sweating. Denies nausea, vomiting, diarrhea, constipation. Denies dysuria, urinary frequency and urgency. Related Data Home Medications ?Medication ?Instructions ?Recorded ?Confirmed trazodone 50 mg tablet 100 mg PO HS 11/06/18 03/28/24 omeprazole 20 mg capsule,delayed 20 mg PO QDAY 01/30/19 03/28/24 release atorvastatin 20 mg tablet 20 mg PO HS 01/05/21 03/28/24 benazepril 10 mg tablet 10 mg PO Q12H 03/28/24 03/28/24 gabapentin 800 mg tablet 800 mg PO TID 03/28/24 03/28/24 Previous Rx's ?Medication ?Instructions ?Recorded apixaban 5 mg tablet (Eliquis) 5 mg PO BID #60 tabs 04/14/24 Allergies Allergy/AdvReac Type Severity Reaction Status Date / Time No Known Allergies Allergy Verified 01/30/25 08:27 Review of Systems Review of Systems Systems Reviewed: All systems reviewed, normal except as documented Past Medical History Past Medical History CARDIAC: Positive Myocardial Infarction, Atherosclerotic Heart Disease, Hypercholesterolemia, Congestive Heart Failure and Hypertension RESPIRATORY: Positive Chronic Obstructive Pulmonary Disease (COPD) and Asthma GASTROINTESTINAL: Positive Gastrointestinal Disorders, Diverticulitis and Diverticulosis GENITOURINARY: Positive Genitourinary Disorders and Kidney Stones MUSCULOSKELETAL: Positive Musculoskeletal Disorders and Arthritis PSYCHO/SOCIAL: Positive Anxiety and Behavior Problems Family History FAMILY HISTORY: Positive Family Cardiac Disorders Surgical History SURGICAL: Positive Cardiac Surgery and Abdominal Surgery Social History SMOKING STATUS: Former smoker SUBSTANCE USE: does not use ED Exam Narrative Physical exam: GENERAL APPEARANCE: alert and oriented x 4, well-developed, well-nourished, no acute distress HEENT: Normocephalic, atraumatic; pupils equal, round, reactive to light; EOMI; mucous membranes pink, moist; oropharynx clear NECK: Supple LUNGS: CTABL; no wheezes, no rales, no rhonchi HEART: Regular rate, regular rhythm; normal S1, S2; no murmurs ABDOMEN: non distended; normal BS; soft, no tenderness, no guarding, no rebound; no masses, no organomegaly, no hernia EXTREMITIES: atraumatic; no edema NEUROLOGIC: awake; alert and oriented x4; cranial nerves II-XII grossly intact PSYCHIATRIC: appropriate mood and affect SKIN: warm, dry, normal color; no rashes Course Course Course Narrative: Patient remains clinically stable throughout the emergency department visit. We reviewed all the results, analysis, and treatment plans. Patient is amenable to discharge. Strict return precautions were outlined. Quality Measures none Orders Category Date Time Status Obstetrics And Gynecology Professor NOW Care 01/30/25 08:31 Active EKG (ED ONLY) *Do not use* NOW Care 01/30/25 08:28 Completed EKG (ED Only) Stat Exams 01/30/25 08:28 Draft XR chest 1V portable Stat Exams 01/30/25 08:31 Completed B-Type Natriuretic Peptide Stat Lab 01/30/25 09:28 Completed CBC Stat Lab 01/30/25 09:28 Results Comprehensive Metabolic Panel Stat Lab 01/30/25 09:28 Completed Drug Screen,Urine Stat Lab 01/30/25 10:31 Completed ESR [Sed Rate (ESR)] Stat Lab 01/30/25 12:52 Completed Lipase Stat Lab 01/30/25 09:28 Completed Magnesium Stat Lab 01/30/25 09:28 Completed Partial Thromboplastin Time Stat Lab 01/30/25 09:28 Completed Path Review Blood Smear Stat Lab 01/30/25 09:28 Results Prothrombin Time with INR Stat Lab 01/30/25 09:28 Completed Troponin I Stat Lab 01/30/25 09:28 Completed Troponin I Stat Lab 01/30/25 12:52 Completed UA, C/S IF [Urinalysis, C/S if Indicated] Stat Lab 01/30/25 10:31 Completed Vital Signs Vital signs: Vital Signs Temperature 97.7 F 01/30/25 08:34 Pulse Rate 75 11/05/25 08:34 Respiratory Rate 16 01/30/25 08:34 Blood Pressure 126/85 H 01/30/25 08:34 Pulse Oximetry (%) 95 01/30/25 08:34 Oxygen Delivery Method Room Air 01/30/25 08:34 Pulse ox is 95% on room air which is adequate. Chest Pain MDM Narrative MDM Narrative:: Christiane Sadler am scribing for and in the presence of Dr. Koo. Patient data External records reviewed:: [facility] previous records and EMS form Clinical information provided by:: patient and EMS Social determinants that could affect healthcare access:: none Patient has the following chronic illnesses:: CVA, CHF, hypertension, COPD, CKD How is presenting disease/condition affected by chronic disease/condition?: exacerbated by Evaluation data The following diagnostics were reviewed and interpreted by me:: lab results, radiology exam(s) and EKG tracing(s) (EKG @ 08:34 AM. Normal sinus rhythm, rate 76, no STEMI. ) Lab and/or radiology exams considered but not ordered:: None Interpretation Summary: Ordering Physician: Kathleen Koo MD Date of Service: 01/30/25 Procedure(s): XR chest 1V portable Accession Number(s): [id number] cc: Joseph Grider MD; Kathleen Koo MD; Deng Lyles DO~ CLINICAL INDICATION: chest pain Exam date and time: 01/30/2025, 9:00 a.m. TECHNIQUE: XR chest 1V portable COMPARISON: Chest radiograph 04/14/2024. CT chest abdomen and pelvis FINDINGS: The cardiomediastinal silhouette is normal in size. Aortic atherosclerosis is reidentified. No evidence for acute congestive heart failure. Redemonstration of prominent pulmonary arteries and mildly coarse bibasilar interstitial markings. No evidence for acute airspace consolidation. No pleural effusion or pneumothorax. No mass. Multifocal degenerative changes with otherwise no evidence for recent fracture or aggressive lesion. IMPRESSION: No evidence for airspace consolidation, pleural effusion or pneumothorax. Redemonstration of prominent pulmonary arteries and mildly coarse bibasilar predominant pulmonary interstitium which could be related to mild edema or inflammation. - This report was generated utilizing speech recognition software. - Dictated By: Deng Lyles DO Signed By: <Electronically signed by Deng Lyles DO in OV> 01/30/25 0946 Medications / Prescriptions Medications or Prescriptions considered but not ordered:: None Medication administrations:: None Consultations Consultation(s) initiated? (list below): No Diagnosis Chest Pain Differential Diagnosis: pneumothorax, unstable angina pectoris, atypical chest pain, costochondritis, chest pain, biliary colic and other (COPD exacerbation ) Most likely diagnosis given after review of the tests above:: Atypical chest pain Admission Indicated Admission indicated?: not indicated Explain why admission is indicated or not indicated:: With no condition needing emergent intervention, there was no indication for admission. Admission Request Was there a request for admission?: No Disposition Plan Disposition Plan: Discharge Discharge Attestation Discharge Attestation: The patient and all family members were given an opportunity to ask questions and understood the discharge instructions. Discharge instructions specifically effects, indications for sooner follow up or return to the emergency department, and the expected course of current diagnosis. Patient condition: Stable Discharge Plan Plan Patient Disposition: HOME (Self Care) Prescriptions/Referrals Prescriptions/Med Rec: No Action trazodone 50 mg Tablet 100 mg PO HS omeprazole 20 mg Capsule,Delayed Release(Dr/Ec) 20 mg PO QDAY atorvastatin 20 mg tablet 20 mg PO HS Patient Comments: TAKE 1 TABLET BY MOUTH AT BEDTIME benazepril 10 mg tablet 10 mg PO Q12H Patient Comments: TAKE 2 TABLETS BY MOUTH EVERY MORNING AND 1 TABLET BY MOUTH EVERY EVENING. gabapentin 800 mg tablet 800 mg PO TID Patient Comments: TAKE 1 TABLET BY MOUTH THREE TIMES A DAY Eliquis 5 mg tablet 5 mg PO BID Qty: 60 0RF Referrals: Joseph Grider MD [Primary Care Provider] - In 1 week Problem List Clinical Impression: Atypical chest pain Patient/Caregiver Discharge Instructions Education Materials: ED Chest Pain, Uncertain Cause Print Language: Portuguese Stand Alone Forms: [employer] Info., Patient Portal Info Letter
[2025-01-30 08:34] VITALS: BP 126/85; PULSE 75; RESP 16; TEMP 36.5; O2SAT 95; BMI 32.3
[2025-01-30 09:42] LABS: Basophils # (Auto) 0.0 Thou/mm3 (0.0-0.2); Basophils % (Auto) 0 % (0-2.5); Eosinophils # (Auto) 0.1 Thou/mm3 (0.0-0.5); Eosinophils % (Auto) 1 % (0-10); Hematocrit 44.6 % (41.0-53.0); Hemoglobin 15.0 g/dL (13.5-16.0); Immature Granulocytes Auto 0.02 Thou/mm3 (0.00-0.00); Lymphocytes # (Auto) 1.2 Thou/mm3 (1.0-4.8); Lymphocytes % (Auto) 17 % (10-50); Mean Corpuscular HGB Conc 33.6 g/dl (31.0-37.0); Mean Corpuscular Hemoglobin 30.5 pg (25.0-35.0); Mean Corpuscular Volume 91 fL (80-100); Monocytes # (Auto) 2.4 Thou/mm3 (0.0-0.8); Monocytes % (Auto) 32 % (0-12); Neutrophils # (Auto) 3.8 Thou/mm3 (1.8-7.7); Neutrophils % (Auto) 51 % (37-80); Nucleated Red Blood Cell # 0.00 Thou/mm3 (0.00-0.00); Nucleated Red Blood Cell % 0 /100 WBC (0); Platelet Count 250 Thou/mm3 (140-440); RDW Standard Deviation 49.2 fL (35.1-43.9); Red Blood Count 4.92 Miln/mm3 (4.50-5.90); White Blood Count 7.5 Thou/mm3 (3.8-10.6)
[2025-01-30 09:58] LABS: INR 1.1 (0.9-1.3); Partial Thromboplastin Time 33.9 Seconds (22.0-36.0); Prothrombin Time 11.6 Seconds (9.0-12.2)
[2025-01-30 10:02] LABS: Alanine Aminotransferase 17 U/L (10-49); Albumin, Serum 5.1 gm/dL (3.4-4.8); Albumin/Globulin Ratio 2.7 (1.2-2.2); Alkaline Phosphatase 31 U/L (46-116); Anion Gap 8 (7-16); Aspartate Amino Transferase 28 U/L (0-34); BUN/Creatinine Ratio 8 Ratio (12-20); Bilirubin,Total 0.5 mg/dL (0.3-1.2); Blood Urea Nitrogen 9 mg/dL (9-23); Calcium 9.3 mg/dL (8.3-10.6); Calcium (Corrected) 9.3 mg/dL (8.5-10.1); Carbon Dioxide 26.6 mMol/L (20.0-31.0); Chloride 107 mMol/L (98-107); Creatinine (Component) 1.2 mg/dL (0.6-1.3); Estimated Creatinine Clearance 59.6 mL/min (>60); Globulin 1.9 gm/dL (2.3-3.5); Glucose 96 mg/dL (74-106); Lipase 28 U/L (12-53); Magnesium 2.0 mg/dL (1.6-2.6); Osmolality,Calculated 281 (275-295); Potassium 4.2 mMol/L (3.4-5.1); Sodium 142 mMol/L (136-145); Total Protein 7.0 gm/dL (5.7-8.2); Troponin I < 0.002 ng/mL (0.0-0.045); eGFR > 60 See Note
[2025-01-30 10:11] LABS: B-Type Natriuretic Peptide < 20 pg/mL (0-100)
[2025-01-30 10:38] LABS: Collection Type, Urine Clean Catch; Squamous Epithelial Cell,Urine 0 /hpf (0-5)
[2025-01-30 10:54] LABS: Bacteria,Urine Rare; Bilirubin,Urine Negative (Negative); Blood,Urine 1+ (Negative); Clarity,Urine Clear (Clear/Hazy); Color,Urine Lt-Yellow (Lt Yel-Yel); Culture Indicated,Urine Not Indicated; Glucose, Urine Negative (Negative); Ketones,Urine Negative (Negative); Leukocyte Esterase,Urine Negative (Negative); Nitrite,Urine Negative (Negative); PH,Urine 6.0 (5.0-7.0); Protein,Urine Negative (Neg - Trace); RBC,Urine 1 /hpf (0-3); Specific Gravity,Urine 1.010 (1.001-1.035); Urobilinogen,Urine Negative mg/dL (0.0-1.0); WBC,Urine < 1 /hpf (0-5)
[2025-01-30 10:55] LABS: Amphetamine/Methamp Scrn,U Negative (Negative); Barbiturate Screen,Urine Negative (Negative); Benzodiazepines Screen,Urine Negative (Negative); Benzoylecgonine Screen, Ur Negative (Negative); Fentanyl Screen,Urine Negative (Negative); Opiate Screen,Urine Negative (Negative); THC Screen,Urine Positive (Negative)
[2025-01-30 13:19] LABS: Troponin I < 0.002 ng/mL (0.0-0.045)
[2025-01-30 14:30] LABS: Sed Rate (ESR) 16 mm/hr (0-20)
[2025-01-30 16:29] LABS: Path Review Blood Smear Sent to Pathologist
== END 2025-01-30 15:57 | disposition home or self-care (01) ==
PROVIDERS: Emergency Provider Emergency Medicine; PCP Family Medicine
DX: R07.89 Other chest pain (principal); I13.0 Hypertensive heart and chronic kidney disease with heart failure and stage 1 through stage 4 chronic kidney disease, or unspecified chronic kidney disease; J44.9 Chronic obstructive pulmonary disease, unspecified; N18.9 Chronic kidney disease, unspecified; Z79.01 Long term (current) use of anticoagulants
CPT/HCPCS: 36415; 71045; 80053; 80307; 81001; 83690; 83735; 83880; 84484; 85025; 85610; 85652; 85730; 93005; 99283